=== PATIENT | male | born 1945 | race Caucasian/White ===

== ENCOUNTER 2020-11-05 02:03 | Outpatient (CLI) | payer OTHER, SELFPAY ==
--- NOTE | 2020-11-05 | DI.US_ITS ---
APPROVED REPORT EXAM: Comprehensive 2D, Doppler, and color-flow Echocardiogram Patient Location: Out-Patient Employment Consultant: Joann Orozco RDCS ([facility]) Indications: Systolic heart murmur, Dyspnea on Exertion Other Information Study Quality: Adequate Conclusion Left Ventricle : The left ventricle is normal size. The left ventricular systolic function is normal. The left ventricular ejection fraction is within the normal range. There is normal left ventricular wall thickness. There is normal LV segmental wall motion. The left ventricular diastolic function is normal. LVEF is 60-65%. Right Ventricle : The right ventricle is normal size. The right ventricular systolic function is norm al. The RVSP is 30.1mmHg. Aortic Valve : Aortic valve is calcified. Number of aortic valve leaflets could not be assessed. No a ortic regurgitation is present. Mild aortic stenosis. Peak aortic valve gradient is 29.9mmHg. Highest mean aortic valve gradient is 18.0mmHg. Calculated CHANDRIKA by the continuity equation is 1.24cm2. Mitral Valve : Moderate mitral annular calcification. Mitral valve leaflets are thickened. Trace mitr al regurgitation. No evidence of mitral valve stenosis. Great Vessels : The aortic root is normal in size. The ascending aorta is normal in size. Aortic ar ch is not well visualized. IVC is normal in size and collapses >50% with inspiration. Please see remainder of study for further details. Wall motion Left Ventricle The left ventricle is normal size. The left ventricular systolic function is normal. The left ventric ular ejection fraction is within the normal range. There is normal left ventricular wall thickness. T here is normal LV segmental wall motion. The left ventricular diastolic function is normal. There is no ventricular septal defect visualized. LVEF is 60-65%. Right Ventricle The right ventricle is normal size. The right ventricular systolic function is normal. The RVSP is 30 .1mmHg. Atria The left atrium size is normal. The right atrium size is normal. The interatrial septum is intact wit h no evidence for an atrial septal defect. Aortic Valve Aortic valve is calcified. Number of aortic valve leaflets could not be assessed. Mild aortic stenosi s. Peak aortic valve gradient is 29.9mmHg. Highest mean aortic valve gradient is 18.0mmHg. Calculated CHANDRIKA by the continuity equation is 1.24cm2. No aortic regurgitation is present. Mitral Valve Moderate mitral annular calcification. Mitral valve leaflets are thickened. No evidence of mitral velasquez ve stenosis. Trace mitral regurgitation. Tricuspid Valve The tricuspid valve is normal in structure. There is no tricuspid valve stenosis. Trace tricuspid reg urgitation. Pulmonic Valve Pulmonic valve is grossly normal in structure. There is no pulmonic valvular stenosis. There is no pu lmonic valvular regurgitation. Great Vessels The aortic root is normal in size. The ascending aorta is normal in size. Aortic arch is not well vi sualized. IVC is normal in size and collapses >50% with inspiration. Pericardium There is no pericardial effusion. 2D Dimensions IVSD d PLAX 0.86 cm M: 0.6-1.2 LV Vol A2C d MOD 73.6 mL LVPW d PLAX 0.90 cm M: 0.6 - 1.2 LV Vol A4C d MOD 60.4 mL LVID d PLAX 4.35 cm M: 4.2 - 5.8 LA vol/ BSA A2C s A-L 12.2 mL/m2 LVDs 2.90 cm M: 2.5 - 4.0 LA vol/ BSA A4C s A-L 13.7 mL/m2 Ao Root d 3.15 cm M: 3.1 - 3.7 LA Vol/ BSA Biplane s A-L 13.7 mL/m2 RA Area A4C 13.13 cm2 LA Area A4C s MOD 12.84 cm2 RA Vol/ BSA A4C s A-L 12.9 mL/m2 LA Area A2C s MOD 11.45 cm2 Ao Asc Diam d 3.54 cm M: 2.6 - 3.4 LV EF A4C MOD 65.5 % LV EF Teichholz 61.4 % LV EF A2C MOD 60.6 % LVEF (Diaz's) 61.91 % M: 52 - 72 LV EF Biplane MOD 61.9 % LV Volume 49.79 mL M: 62 - 150 SV 41.40 mL LV Volume Index 24.40 mL/m2 M: 34 - 74 SV Index 20.25 mL/m2 LV Vol Biplane MOD 66.9 mL FS 32.75 % M-Mode TAPSE 2.38 cm (M/F) >1.7 LV Diastology MV E' medial 0.068 (>0.07 m/s) E/A Ratio 0.7 LV E/e MED 15.80 (<14) MV E Vmax 1.08 (0.4-1.3 m/s) MV E' lateral 0.102 (>0.1 m/s) MV A Vmax 1.60 (0.4-1.3 m/s) LV E/e LAT 10.60 (<14) MV E/A Ratio 0.67 MV E/E' medial 15.81 MV E/E' lateral 10.64 Aortic Valve LVOT Area 3.20 cm2 AoV Area Vmax 1.24 cm2 LVOT Vmax 1.06 m/s AoV Area/ BSA (Vmax) 0.61 cm2/m2 LVOT Mean Bob. 0.75 m/s CHANDRIKA Mean Bob. 1.18 cm2 LVOT Peak Grad 4.5 mmHg CHANDRIKA Mean Bob. Index 0.58 cm2/m2 LVOT Mean Grad 2.6 mmHg LVOT VTI 0.212 m LVOT Diam s 2.00 cm AoV Vmax 2.74 m/s Velocity Ratio 0.38 AoV Mean Bob. 2.03 m/s AoV Peak Grad 29.9 mmHg LVOT SV 67.78 mL AoV Mean Grad 18.0 mmHg AoV VTI 0.499 m AoV Area VTI 1.36 cm2 AoV Area/ BSA (VTI) 0.66 cm/m2 Mitral Valve MV DT 220 (160-240 msec) MV PHT 64 msec MV Area PHT 3.45 cm2 MV VTI 0.277 m MV VTI Annulus 0.288 m MV Area VTI 2.55 (4.0-6.0 cm2) Pulmonary Valve PV Vmax 0.99 (0.5-1.5 m/s) RVOT Peak Gr. 2.90 mmHg PV Peak Grad 4.0 mmHg RVOT Mean Gr. 1.45 mmHg PV Mean Grad 2.2 mmHg RVOT VTI 0.135 m PV VTI 0.186 m RVOT Vmax 0.85 m/s Tricuspid Valve TR Peak Grad 27.1 mmHg TR Vmax 2.60 m/s RA Pressure 3.00 mmHg RVSP (TR) 30.1 mmHg
== END 2020-11-05 02:23 ==
PROVIDERS: PCP Family Medicine; Visit Provider Family Medicine
DX: R01.1 Cardiac murmur, unspecified (principal); R06.09 Other forms of dyspnea; I35.0 Nonrheumatic aortic (valve) stenosis
CPT/HCPCS: 93306

== ENCOUNTER 2021-07-11 11:12 | Outpatient (REF) | payer MEDICARE, SELFPAY ==
[2021-07-11 14:37] LABS: Hemoglobin A1C 6.9 % (<5.7)
[2021-07-11 15:09] LABS: ALT 57 U/L (16-63); AST 42 U/L (15-37); Albumin 3.9 g/dL (3.4-5.0); Alkaline Phosphatase 58 U/L (46-116); Anion Gap 9.4 mmol/L (3-11); BUN 14 mg/dL (7-18); Bilirubin, Total 0.6 mg/dL (0.2-1.0); CO2 26.6 mmol/L (21.0-32.0); CREATININE 0.8 mg/dL (0.70-1.30); Calcium 9.8 mg/dL (8.5-10.1); Chloride 100 mmol/L (98-107); Glucose 190 mg/dL (74-106); Potassium 3.7 mmol/L (3.5-5.1); Sodium 136 mmol/L (136-145); Total Protein 7.7 g/dL (6.4-8.2)
== END 2021-07-11 11:13 | disposition home or self-care (01) ==
LOC: NCHCN 11:12
PROVIDERS: PCP Family Medicine; Visit Provider Family Medicine
DX: E11.9 Type 2 diabetes mellitus without complications (principal); I10 Essential (primary) hypertension; E78.5 Hyperlipidemia, unspecified
CPT/HCPCS: 80053; 83036

== ENCOUNTER 2022-08-14 14:35 | Outpatient (REF) | payer MEDICARE, SELFPAY ==
[2022-08-14 19:29] LABS: ALT 46 U/L (16-63); AST 38 U/L (15-37); Albumin 4.2 g/dL (3.4-5.0); Alkaline Phosphatase 64 U/L (46-116); Anion Gap 10.4 mmol/L (3-11); BUN 23 mg/dL (7-18); Bilirubin, Total 0.6 mg/dL (0.2-1.0); CO2 26.6 mmol/L (21.0-32.0); Calcium 9.7 mg/dL (8.5-10.1); Chloride 101 mmol/L (98-107); Estimated GFR 77.52 (mL/min/1.73m2); Glucose 100 mg/dL (74-106); Potassium 3.8 mmol/L (3.5-5.1); Sodium 138 mmol/L (136-145); Total Protein 8.1 g/dL (6.4-8.2)
[2022-08-17 08:14] LABS: PSA, Screening 0.7 ng/mL (<=6.5)
[2022-08-20 08:58] LABS: Hemoglobin A1C 6.1 % (4.0-5.6)
== END 2022-08-14 14:36 | disposition home or self-care (01) ==
LOC: NCHCN 14:35
PROVIDERS: PCP Family Medicine; Visit Provider Family Medicine
DX: E11.9 Type 2 diabetes mellitus without complications (principal); E78.5 Hyperlipidemia, unspecified; I10 Essential (primary) hypertension; F41.8 Other specified anxiety disorders; Z12.5 Encounter for screening for malignant neoplasm of prostate
CPT/HCPCS: 80053; 84153; 83036

== ENCOUNTER 2023-10-08 14:55 | Outpatient (REF) | payer MEDICARE, SELFPAY ==
[2023-10-08 16:39] LABS: HCT 40.3 % (40.0-50.0); HGB 14.4 g/dL (13.5-17.5); MCH 33.6 pg (27.0-33.0); MCHC 35.7 % (32.0-36.0); MCV 94 fL (80-95); MPV 11.3 fL (8.0-11.0); Platelet Count 185 10^3/uL (130-400); RBC 4.28 10^6/uL (4.36-5.78); RDW 12.4 % (11.8-14.1); RDW-SD 42.9 fL; WBC 4.05 10^3/uL (4.4-10.8)
[2023-10-08 16:58] LABS: ALT 47 U/L (16-63); AST 32 U/L (15-37); Alkaline Phosphatase 57 U/L (46-116); Anion Gap 13.1 mmol/L (3-11); BUN 24 mg/dL (7-18); Bilirubin, Total 0.7 mg/dL (0.2-1.0); CO2 24.9 mmol/L (21.0-32.0); Calcium 9.6 mg/dL (8.5-10.1); Chloride 103 mmol/L (98-107); Estimated GFR 76.56 (mL/min/1.73m2); Glucose 76 mg/dL (74-106); Potassium 3.7 mmol/L (3.5-5.1); Sodium 141 mmol/L (136-145); Total Protein 7.9 g/dL (6.4-8.2)
[2023-10-08 17:08] LABS: Hemoglobin A1C 5.9 % (<5.7)
[2023-10-08 22:51] LABS: PSA, Screening 0.6 ng/mL (<=6.5)
== END 2023-10-08 14:56 | disposition home or self-care (01) ==
LOC: NCHCN 14:55
PROVIDERS: PCP Family Medicine; Visit Provider Family Medicine
DX: E11.9 Type 2 diabetes mellitus without complications (principal); I10 Essential (primary) hypertension; Z12.5 Encounter for screening for malignant neoplasm of prostate
CPT/HCPCS: 80053; 84153; 85027; 83036

== ENCOUNTER → 2023-12-06 04:24 | Outpatient (CLI) | payer MEDICARE, SELFPAY ==
--- NOTE | 2023-12-06 13:30 | DI.US_ITS ---
APPROVED REPORT EXAM: Comprehensive 2D, Doppler, and color-flow Echocardiogram Patient Location: Out-Patient Corporate Administrator: Celso Ordoñez RDCS ([facility]) Indications: Nonrheumatic aortic stenosis Other Information Technically limited study due to body habitus. Conclusion Normal left ventricular thickness and chamber size. Ejection fraction is 60 to 65%. Wall motion is normal Normal right ventricular size and function Both atria are normal in size Aortic valve is calcified. Number of aortic valve leaflets cannot be accurately determined. There i s moderate to severe aortic stenosis. Peak gradient is 55, mean 33 mmHg. Calculated aortic valve ar ea 0.8 cm??. There is no aortic regurgitation Mitral annular calcification, mildly thickened mitral leaflets, trace mitral regurgitation Mild tricuspid regurgitation. Estimated right ventricular systolic pressure is 39 mmHg Ascending aorta measures 3.93 cm Wall motion Left Ventricle The left ventricle is normal size. The left ventricular systolic function is normal. The left ventric ular ejection fraction is within the normal range. There is normal left ventricular wall thickness. T here is normal LV segmental wall motion. There is no ventricular septal defect visualized. LVEF is 60 -65%. Right Ventricle The right ventricle is normal size. The right ventricular systolic function is normal. Atria Left atrium is mildly dilated. The right atrium size is normal. The interatrial septum is intact with no evidence for an atrial septal defect. Aortic Valve Aortic valve is calcified. Number of aortic valve leaflets could not be assessed. Moderate to severe aortic stenosis. Peak aortic valve gradient is 55.46 mmHg. Highest mean aortic valve gradient is 32.7 8 mmHg. Calculated CHANDRIKA by the continuity equation is 0.8 cm2. No aortic regurgitation is present. Mitral Valve Moderate mitral annular calcification. Mitral valve leaflets are thickened. No evidence of mitral velasquez ve stenosis. Trace mitral regurgitation. Tricuspid Valve The tricuspid valve is normal in structure. There is no tricuspid valve stenosis. Mild tricuspid regu rgitation. The RVSP is 38.6 mmHg. Pulmonic Valve The pulmonary valve is normal in structure. There is no pulmonic valvular stenosis. There is no pulmo bal valvular regurgitation. Great Vessels The aortic root is normal in size. The ascending aorta is moderately dilated. Aortic arch is not well visualized. IVC is normal in size and collapses >50% with inspiration. Pericardium There is no pericardial effusion. 2D Dimensions IVSD d PLAX 0.70 cm M: 0.6-1.2 Ao Root d 3.17 cm M: 3.1 - 3.7 LVPW d PLAX 0.73 cm M: 0.6 - 1.2 Ao Asc Diam d 3.93 cm M: 2.6 - 3.4 LVID d PLAX 4.60 cm M: 4.2 - 5.8 LVDs 2.98 cm M: 2.5 - 4.0 LV EF Teichholz 64.6 % FS 35.16 % LV EDV (Teich) 97.2 mL LV ESV (Teich) 34.5 mL Stroke Vol Index (Teich) 32.19 M-Mode TAPSE 2.94 cm (M/F) >1.7 Auto EF LV EDV A4C 77.8 mL LV EDV A2C 87.3 mL LV EDV BP 83.7 mL LV ESV A4C 31.0 mL LV ESV A2C 32.7 mL LV ESV BP 32.5 mL LVEF(%) A4C 60.2 % LVEF(%) A2C 62.5 % LVEF(%) BP 61.1 % LV SV A4C 46.8 ml LV SV A2C 54.6 ml LV SV BP 51.1 ml LV CO A4C 4.2 L/min LV CO A2C 4.9 L/min LV CO BP 4.5 L/min HR A4C 89.33 BPM HR A2C 90.00 BPM LV EDV Index (BP) LA Volume LA Length A4C 5.2 cm LA Length A2C 6.0 cm LA Area A4C s 14.40 cm2 LA Area A2C s 17.49 cm2 LA Vol A4C A-L 33.94 mL LA Vol A2C A-L 43.58 mL LA Vol Biplane A-L 41.2 mL LA Vol/BSA A4C A-L LA Vol/BSA A2C A-L LA Vol/BSA BP A-L 21.1 mL/m2 LA Vol A4C MOD 30.9 mL LA Vol A2C MOD 41.6 mL LA Vol BP MOD 38.3 mL RA Volume RA Area A4C 9.2 cm2 RA ESV A4C (A-L) 14.8mL RA Vol/BSA A4C A-L RA Length A4C 4.9 cm RA ESV A4C (MOD) 15.6mL LV Diastology MV E' medial 0.098 (>0.07 m/s) MV E Vmax 1.38 (0.4-1.3 m/s) MV E/E' MED 14.14 (<14) MV A Vmax 1.90 (0.4-1.3 m/s) MV E' lateral 0.098 (>0.1 m/s) E/A Ratio 0.7 MV E/E' LAT 14.14 (<14) MV E' Average 0.098 m/s MV E/E'(average) 14.14 Aortic Valve AoV Vmax 3.72 m/s LVOT Vmax 0.98 m/s AoV Peak Grad 55.5 mmHg LVOT Peak Grad 3.8 mmHg AoV Area (Vmax) 0.66 cm2 LVOT VTI 0.256 m AoV VTI 0.853 m LVOT Mean Grad 3.0 mmHg AoV Mean Bob. 2.72 m/s LVOT SV 64.11 mL AoV Mean Grad 32.8 mmHg LVOT Diam s 1.75 cm AoV Area (VTI) 0.75 cm2 Velocity Ratio 0.26 Mitral Valve MV DT 191 (160-240 msec) Pulmonary Valve PV Vmax 1.00 (0.5-1.5 m/s) RVOT Vmax 0.74 m/s PV Peak Grad 4.0 mmHg RVOT Peak Gr. 2.2 mmHg PV Mean Bob 0.66 m/s RVOT VTI 0.160 m PV Mean Grad 2.1 mmHg RVOT Mean Gr. 1.4 mmHg Tricuspid Valve RA Pressure 3.00 mmHg TR Vmax 2.98 m/s TR Peak Grad 35.5 mmHg RVSP (TR) 38.6 mmHg
== END ==
PROVIDERS: PCP Family Medicine; Visit Provider Family Medicine
DX: I35.0 Nonrheumatic aortic (valve) stenosis (principal); I51.7 Cardiomegaly
CPT/HCPCS: 93306

== ENCOUNTER 2024-04-14 15:27 | Outpatient (REF) | payer MEDICARE, SELFPAY ==
[2024-04-14 19:27] LABS: HCT 28.8 % (40.0-50.0); MCHC 34.7 % (32.0-36.0); MPV 8.9 fL (8.0-11.0); Platelet Count 220 10^3/uL (130-400); RDW 15.5 % (11.8-14.1); RDW-SD 58.4 fL; WBC 2.27 10^3/uL (4.4-10.8)
[2024-04-14 20:05] LABS: ALT 34 U/L (16-63); AST 30 U/L (15-37); Alkaline Phosphatase 96 U/L (46-116); Anion Gap 13.1 mmol/L (3-11); BUN 22 mg/dL (7-18); Bilirubin, Total 0.43 mg/dL (0.2-1.0); CO2 25.9 mmol/L (21.0-32.0); CREATININE 1.1 mg/dL (0.70-1.30); Calcium 9.9 mg/dL (8.5-10.1); Chloride 90 mmol/L (98-107); Estimated GFR 68.29 (mL/min/1.73m2); Glucose 146 mg/dL (74-106); Magnesium 1.7 mg/dL (1.8-2.4); Potassium 3.9 mmol/L (3.5-5.1); Sodium 129 mmol/L (136-145); TSH (W/Ref FT4) 2.75 uIU/mL (0.36-3.74); Total Protein 8.2 g/dL (6.4-8.2); Vitamin B12 121 pg/mL (193-986)
[2024-04-14 20:16] LABS: MCV 107 fL (80-95)
== END 2024-04-14 15:28 | disposition home or self-care (01) ==
LOC: NCHCN 15:27
PROVIDERS: PCP Family Medicine; Visit Provider Family Medicine
DX: H81.8X2 Other disorders of vestibular function, left ear (principal)
CPT/HCPCS: 80053; 85027; 82607; 83735; 84443

== ENCOUNTER 2024-05-11 03:02 | Outpatient (CLI) | payer MEDICARE, SELFPAY ==
[2024-05-11 13:10] LABS: HCT 31.9 % (40.0-50.0); HGB 11.4 g/dL (13.5-17.5); MCH 37.9 pg (27.0-33.0); MCHC 35.7 % (32.0-36.0); MCV 106 fL (80-95); MPV 8.8 fL (8.0-11.0); Platelet Count 161 10^3/uL (130-400); RBC 3.01 10^6/uL (4.36-5.78); RDW 14.3 % (11.8-14.1); RDW-SD 55.8 fL; WBC 2.13 10^3/uL (4.4-10.8)
[2024-05-11 14:28] LABS: Anion Gap 13.2 mmol/L (3-11); BUN 14 mg/dL (7-18); CO2 24.8 mmol/L (21.0-32.0); CREATININE 0.9 mg/dL (0.70-1.30); Calcium 9.9 mg/dL (8.5-10.1); Chloride 98 mmol/L (98-107); Estimated GFR 86.88 (mL/min/1.73m2); Ferritin 864 ng/mL (26-388); Glucose 175 mg/dL (74-106); Potassium 3.8 mmol/L (3.5-5.1); Sodium 136 mmol/L (136-145); Vitamin B12 372 pg/mL (193-986)
[2024-05-11 14:32] LABS: Folate > 20.0 ng/mL (8.6-20.0)
== END 2024-05-11 03:03 | disposition home or self-care (01) ==
LOC: LBO 03:02
PROVIDERS: PCP Family Medicine; Visit Provider Family Medicine
DX: D64.9 Anemia, unspecified (principal); E53.8 Deficiency of other specified B group vitamins; E87.1 Hypo-osmolality and hyponatremia
CPT/HCPCS: 36415; 80048; 85027; 82607; 82728; 82746

== ENCOUNTER 2024-05-22 01:17 | Outpatient (CLI) | payer MEDICARE, SELFPAY ==
[2024-05-22] MEDS: Normal Saline Flush 10 ML SYR IVP (13:13)
[2024-05-22] MEDS: Gadoterate meglumine 20 ML SYRINGE 15 ML IVP (13:14)
--- NOTE | 2024-05-22 14:05 | DI.MRI_ITS ---
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 Both noninfused and contrast i nfused sequences were performed. IAC protocol employed. IV Contrast injected was 15 cc Dotarem. COMPARISON: No exams were available for comparison FINDINGS: CEREBRAL PARENCHYMA: No evidence of intracranial hemorrhage, mass effect nor shift of midline structu re. No extraaxial fluid collections. Ventricles are not enlarged nor shifted. There is no significant focal signal abnormality in the cerebellar hemispheres. There is some mild s ignal abnormality in the left side of the farhad, not associated with hemorrhage nor restricted diffusi on. There is only mild bilateral periventricular signal abnormality consistent with some chronic sma ll vessel disease. Also no restricted diffusion. DWI: No areas of restricted diffusion to suggest acute ischemic event. SWI: No microhemorrhages evident. IAC'S: There are no masses in the cerebellopontine angles. Also no evidence of enhancing intra canal icular acoustic neuroma/schwannoma. There are no ring enhancing lesions in the brain. There is no abnormal meningeal enhancement. PITUITARY GLAND: No mass nor parasellar abnormality. No obvious abnormality in the cavernous sinuses. FLOW VOIDS: The expected flow void are noted. No evidence of obvious aneurysm nor obvious vascular ma lformation. PARANASAL SINUSES: The visualized paranasal sinuses appear unremarkable. There is small amount of flu id in the mastoid air cells bilaterally. ORBITS: No obvious abnormal findings. IMPRESSION: 1. No evidence of acoustic neuroma-schwannoma 2. No abnormal enhancing intracranial findings. There are no ring enhancing lesions in the brain and there is no abnormal meningeal enhancement. 3. Mild T2 bright signal abnormality in left side of the farhad and bilateral periventricular consiste nt with some chronic small vessel disease. There is no evidence of restricted diffusion to suggest r ecent ischemic event and there is no evidence of hemorrhage. DATA REPOSITORY:
== END 2024-05-22 01:37 ==
LOC: DI 01:17
PROVIDERS: PCP Family Medicine; Visit Provider Family Medicine
DX: I67.82 Cerebral ischemia (principal)
CPT/HCPCS: 70553

== ENCOUNTER 2024-06-19 14:02 | Outpatient (CLI) | payer MEDICARE, SELFPAY ==
[2024-06-19 13:52] LABS: HCT 30.1 % (40.0-50.0); HGB 10.6 g/dL (13.5-17.5); MCH 38.3 pg (27.0-33.0); MCHC 35.2 % (32.0-36.0); MCV 109 fL (80-95); MPV 8.4 fL (8.0-11.0); Platelet Count 117 10^3/uL (130-400); RBC 2.77 10^6/uL (4.36-5.78); RDW 13.7 % (11.8-14.1); RDW-SD 54.1 fL
[2024-06-19 14:00] LABS: WBC 1.59 10^3/uL (4.4-10.8)
[2024-06-19 17:08] LABS: Absolute Eosinophil Count 0.03 10^3/uL (0.0-0.7); Absolute Lymphocyte Count 0.89 10^3/uL (1.2-3.4); Absolute Monocyte Count 0.19 10^3/uL (0.1-0.8); Atypical Lymphocytes % 4 %; Bands % 2 %
[2024-06-19 17:10] LABS: Macrocytosis 1+; Polychromasia Present
[2024-06-19 17:35] LABS: Diff Comment Manual Differential
[2024-06-19 18:10] LABS: Absolute Neutrophil Count 0.48 10^3/uL (1.2-6.7)
== END 2024-06-19 14:03 | disposition home or self-care (01) ==
LOC: LBO 14:05
PROVIDERS: PCP Family Medicine; Visit Provider Family Medicine
DX: D64.9 Anemia, unspecified (principal)
CPT/HCPCS: 36415; 85027; 85007

== ENCOUNTER 2024-07-03 00:31 | Emergency (ER) | payer OTHER, SELFPAY ==
[2024-07-03] VITALS (61 sets, daily range): BP systolic 120–173; BP diastolic 43–95; PULSE 85–117; RESP 16–31; TEMP 36.7; O2SAT 96–99
--- NOTE | 2024-07-03 00:15 | RT.EKG_ITS ---
APPROVED REPORT Exam: Resting ECG Reason for Exam: syncope Patient Location: E HR:114 bpm ECG Measurements Heart Rate 114 AXIS MD 186 P 49 QRSd 99 QRS 71 QT 343 T 53 QTc 470 Conclusion Sinus tachycardia...rate> 99 Atrial premature complex...SV complex w/ short R-R interval no ST segment or T wave abnoramlitites to suggest occlusive DE
--- NOTE | 2024-07-03 00:30 | DI.CT_ITS ---
Exam(s) CT HEAD CERVICAL SPINE WO EXAM: CT HEAD CERVICAL SPINE WO CLINICAL HISTORY: syncope and fall. TECHNIQUE: Imaging Protocol: Axial computed tomography images with coronal and sagittal reformatted images were created and reviewed COMPARISON: No exams were available for comparison FINDINGS: Head CT Ventricles and Extra axial spaces: Normal in size and morphology for the patient's age. Small amount of hemorrhage in the right occipital horn. Hemorrhage: Acute right parietal subdural hematoma measuring 5 millimeters in thickness. Adjacent brody barachnoid hemorrhage. Focal intraparenchymal hemorrhage noted on the lateral right occipital lobe . Small amount of subarachnoid hemorrhage is noted at the medial right frontal lobe, adjacent to the falx. Small amount of hemorrhage in the right occipital horn. Small amount subarachnoid hemorrhage in left ambient cistern. Cerebral parenchyma: No evidence of mass or acute infarct. [id number] atrophy. Midline shift: None. Brainstem/Cerebellum: Normal. Calvarium: Normal. Visualized Paranasal sinuses/Mastoids: Small amount of mucus in the left sphenoid sinus. Soft tissues: Unremarkable. Cervical Spine CT BONES: Schmorl's node at superior endplate of C7.. Alignment is normal. There is no evidence of acut e fracture. Degenerative disc changes and facet degenerative changes are seen, greatest at C 3 4. SOFT TISSUES: No paraspinal hematoma. The airway appears intact. No pneumothorax is seen at the lung apices. Heavy calcification noted at the right common carotid bulb and proximal right internal carotid artery . IMPRESSION: Head CT: Acute right subdural hematoma. Three areas of subarachnoid hemorrhage, right parietal, righ t frontal and left ambient cistern. Small focus of parenchymal hemorrhage in the lateral right occip ital lobe. C-spine CT: Degenerative changes, no acute abnormality. RADIATION DOSE DELIVERED: 1,216.13mGy.cm Total DLP DATA REPOSITORY: All CT scans at this facility are submitted to the National Radiology Data Registry (NRDR) Dose Index Registry (DIR) with the [employer] ([employer]). RADIATION OPTIMIZATION: All CT scans at this facility use at least one of these dose optimization te chniques: automated exposure control; mA and/or kV adjustment per patient size (includes targeted exa ms where dose is matched to clinical indication); or iterative reconstruction.
--- NOTE | 2024-07-03 00:45 | NUR.NOTE ---
Patient had artifact with EKG by using the stickers that patient had on him from the ambulance, therefore we changed the stickers and were able to get a better picture. We tried to do the EKG as fast as we could given the artifact that we kept experiencing.
[2024-07-03 01:08] LABS: Abs Immature Grans 0.05 10^3/uL (0.0-0.06); HCT 30.1 % (40.0-50.0); HGB 10.6 g/dL (13.5-17.5); MCH 37.9 pg (27.0-33.0); MCHC 35.2 % (32.0-36.0); MCV 108 fL (80-95); MPV 8.8 fL (8.0-11.0); Platelet Count 247 10^3/uL (130-400); RDW 13.1 % (11.8-14.1); RDW-SD 51.4 fL; WBC 3.31 10^3/uL (4.4-10.8)
[2024-07-03] MEDS: PIPERACILLIN/TAZO 4.5 GM in Normal Saline 100 ML IVPB (01:09)
[2024-07-03 01:10] LABS: Lactate 5.8 mmol/L (0.6-1.4)
--- NOTE | 2024-07-03 01:14 | W.ED.GENAD ---
Discharge Plan Disposition Patient Disposition: Transfer-Acute Inpatient Care Specific Acute Inpt Facility: [facility] Condition: Serious Discharge Details Clinical Impression: SAH (subarachnoid hemorrhage), SDH (subdural hematoma), Intraparenchymal hemorrhage of brain, Seizure, Neutropenia Primary Care Provider: Crista Madera V ED Provider: Ofelia Bustillo Home Meds and New Rx's Prescriptions: No Action Ozempic 0.25 mg or 0.5 mg (2 mg/3 mL) pen injector 0.25 mg subcut QWEEK Rx Instructions: for 4 weeks hydrochlorothiazide 25 mg tablet 25 mg PO DAILY simvastatin 20 mg tablet 20 mg PO DAILY losartan [Cozaar] 100 mg tablet 100 mg PO DAILY duloxetine 30 mg capsule, delayed rel sprinkle 30 mg PO DAILY Bioflex 405-03-09-40 mg tablet 1 tab PO DAILY metformin [Glumetza] 500 mg tablet,ER ilene.retention 24 hr 500 mg PO TID aspirin [Adult Aspirin Regimen] 81 mg tablet,delayed release (DR/EC) 81 mg PO DAILY HPI General Mode of arrival: EMS. Date/Time Provider Initiated Documentation: 07/03/24 00:43. Limitations to Documentation: altered mental status. Information obtained by: patient, EMS and old records reviewed. HPI Narrative: 78yo M presenting via EMS for syncope. Patient unable to provide detailed medical history; per EMS was recently diagnosed with lung cancer. Pt states he has not yet seen oncology or started treatment. Medical history from [facility] shows HTN, HLD, T2DM, aortic stenosis, and pancytopenia with outpatient PCP visit on 06/09 for lightheadedness/vertgio/near syncope. Patient presents today for several episodes of syncope. He does not think he fell or hit his head. Feels mildly short of breath since this afternoon, otherwise denies any symptoms currently. No fevers, chills, rash, nausea, vomiting, headache, numbness, tingling, weakness, abdominal pain, dysuria, hematuria, LE edema, chest pain, or other concerns. Attempted to contact pt's for collateral informaiton, unable to reach. Indy subsequently presented to bedside; states patient has not been diagnosed with lung cancer, rather that his PCP was concerned about low WBC/Hg/platelets and scheduled a bone marrow biopsy to evaluate for hematologic malignancy. She reports that patient had two episodes of loss of consciousness today while in his chair (maybe trying to get up?). During the first one she observed about two minutes of whole body convulsions after which he seemed confused for 10-15 minutes. The second episode was similar but he did not have convulsions at that time, was belly breathing and not responsive for about two minutes and then confused afterwards. She called EMS after the second episode. States that he is back to baseline now and acting like his usual self. Related Data Home Medications ?Medication ?Instructions ?Recorded ?Confirmed aspirin 81 mg tablet,delayed 81 mg PO DAILY 07/03/24 07/03/24 release (Adult Aspirin Regimen) duloxetine 30 mg capsule,delayed 30 mg PO DAILY 07/03/24 07/03/24 release sprinkle hydrochlorothiazide 25 mg tablet 25 mg PO DAILY 07/03/24 07/03/24 losartan 100 mg tablet (Cozaar) 100 mg PO DAILY 07/03/24 07/03/24 metformin 500 mg 24 hr 500 mg PO TID 07/03/24 07/03/24 tablet,extended release (gastric retention) (Glumetza) semaglutide 0.25 mg or 0.5 mg (2 0.25 mg subcut QWEEK 07/03/24 07/03/24 mg/3 mL) subcutaneous pen injector (Ozempic) simvastatin 20 mg tablet 20 mg PO DAILY 07/03/24 07/03/24 vit 1 tab PO DAILY 07/03/24 07/03/24 [id number]-[id number] 500 mg-50 mg-25 mg-40 mg tablet (Bioflex) Allergies Allergy/AdvReac Type Severity Reaction Status Date / Time No Known Allergies Allergy Unverified 07/03/24 00:45 General Stated Complaint: [id number] DINAH: 3 Review of Systems Narrative: see HPI Exam Narrative Exam Narrative: GENERAL: Alert, no acute distress. SKIN: Warm and well perfused. HEAD: Atraumatic, normocephalic without edema, discoloration or evidence of trauma. Facial bones without deformities or tenderness. EYES: PERRL. No scleral icterus or conjunctival injection. Extraocular muscles intact without nystagmus or diplopia. No proptosis or enophthalmos. EARS: Normal appearing pinnae. No hemotympanum. NOSE: No discharge, tenderness, laxity. No nasal septal hematoma. MOUTH: No malocclusion or trismus. Moist mucus membranes without blood. Posterior pharynx without erythema or exudate. NECK: Trachea midline. No discolorations or edema. CV: Tachycardiac, regular. Normal s1 and s2. PV: Radial pulses 2+ bilaterally and symmetric. Dorsalis pedis pulses 1+ bilaterally and symmetric. 2+ capillary refill. No extremity edema. CHEST: No abrasions or ecchymosis. Chest symmetric with respirations. Right lateral/posterior chest wall TTP. No crepitus. No step offs. Lungs are clear to auscultation bilaterally. ABDOMEN: No ecchymosis or abrasions. Soft, nondistended, nontender. BACK: No abrasions, skin openings, or ecchymosis. Spine without bony tenderness, no step offs. PELVIC: Pelvis stable, nontender to lateral compression and palpation of symphysis pubis. : Normal external genitalia without blood at meatus. No ecchymosis or edema. MSK: No gross deformities or discolorations or lesions. Tolerates full range of motion of extremities without tenderness. Neuro: ? Alert, oriented to person & place only. GCS 14 (E4 V4 M6).? PERRL.? EOMI.? Fluent speech, no dysarthria. Motor- 4/5 strength RUE with elbow flexion and extension, otherwise 5/5 strength symmetric bilateral upper and lower extremities including shoulder abductors/adductors, elbow flexors/extensors, wrist flexors/extensors, finger abductors/adductors, hipflexors/extensors, knee flexors/extensors, ankle dorsiflexors and planter flexors. Sensation- ?Intact to light touch and symmetric multiple dermatomes including upper and lower extremities Coordination- RUE with mild dysmetria on finger to nose. LUE no dysmetria. Reflexes- 1/4 achilles & patellar, no clonus Gait: Not tested. CRANIAL NERVES: II: Pupils equal and reactive, III, IV, : EOM intact, no gaze preference or deviation, no nystagmus. V: normal sensation in V1, V2, and V3 segments bilaterally VII: no asymmetry, no nasolabial fold flattening VIII: normal hearing to speech IX, X: normal palatal elevation, no uvular deviation XI: 5/5 head turn and 5/5 shoulder shrug bilaterally XII: midline tongue protrusion Course Vital Signs Vital signs: Vital Signs Temperature 36.7 C 07/03/24 00:30 Pulse 117 H 07/03/24 00:30 Respiratory Rate 16 07/03/24 00:30 Blood Pressure 151/43 H 07/03/24 00:30 Pulse Oximetry 96 07/03/24 00:30 Temperature 36.7 C 07/03/24 00:30 Temperature Source Temporal Artery Scan 07/03/24 00:30 Pulse 117 H 07/03/24 00:30 Respiratory Rate 16 07/03/24 00:54 Respiratory Effort Normal, Non-Labored 07/03/24 00:54 Respiratory Depth Normal 07/03/24 00:54 Respiratory Pattern Normal 07/03/24 00:54 Blood Pressure 151/43 H 07/03/24 00:30 Blood Pressure Position Supine 07/03/24 00:30 Pulse Oximetry 96 07/03/24 00:30 Oxygen Delivery Method Room Air 07/03/24 00:30 Oxygen Flow Rate 0 07/03/24 00:30 Lab/Test Results Lab/Test Results: 07/03/24 01:00 Blood Blood Culture - Pending 07/03/24 00:45 Blood Blood Culture - Pending Laboratory Tests Range/Units 07/03/24 00:39 VBG Lactate (0.6-1.4) mmol/L 5.8 H* Medical Decision Making 78yo M presenting via EMS for syncope. Patient unable to provide detailed medical history; per EMS was recently diagnosed with lung cancer. Medical history from [facility] shows HTN, HLD, T2DM, aortic stenosis, and pancytopenia with outpatient PCP visit on 06/09 for lightheadedness/vertgio/near syncope. [facility] record review shows WBC of 1.6 with neutropenia on 06/19/24. He reports mild shortness of breath, otherwise denies symptoms. Tachycardiac on arrival to 110's-120's, vital signs otherwise reassuring. EKG sinus tachycardia, appropriate intervals, no ST segment or T wave abnormalities to suggest occlusive MO. Given recent neutropenia and tachycardiac here, will treat for possible sepsis with broad spectrum abx zosyn/zyvox and send blood cultures while awaiting further workup. Will start with 1L IVFB, must consider heart failure as a possibility given age, minimal history from patient, and shortness of breath. Indy subsequently presented to bedside; states patient has not been diagnosed with lung cancer, rather that his PCP was concerned about low WBC/Hg/platelets and scheduled a bone marrow biopsy to evaluate for hematologic malignancy. Describes two episodes of LOC today concerning for syncope vs seizure, one episode with generalized convulsions and both followed by a period of increased confusion. She states that he is back to baseline now. He does have mild RUE weakness and dysmetria; states the weakness is not new and has been present for several months. -Labs reviewed as below, CBC with neutropenia albeit somewhat improved (WBC 3.3, ANC 0.99) with mild anemia and no thrombocytopenia, CMP with mild hyponatremia at 134 and hypokalemia at 3.1 (oral replacement ordered), Mg low at 1.5 (oral replacement ordered), initial troponin normal, BNP not consistent with CHF, procal reassuring, lactate significantly elevated at 5.8 (?sepsis vs seizure). -CT head/cspine independently reviewed; agree with radiology reads below with SAH, subdural hematoma, intraparenchymal hemmoraghe. -CT chest independently reviewed; no large saddle pulmonary embolus on my view, agree with radiology read below with right 4th-8th rib fractures. -CT abd/pelvis independently reviewed; no free fluid or obstruction on my view, agree with radiology read below. With SAH/SDH/IPH on CT head, will give 2g IV Keppra for seizures/seizure ppx. SBP ranging 140's-150's; goal <160 so will not treat at this time. Discussed with [facility] trauma Dr. Nash; accepted as trauma alert. Awaiting transport. Medical Records Medical records reviewed: Yes I reviewed the patient's medical records. Imaging Data Radiologic Study: Imaging: CT Scan Radiologist's impression: Head: IMPRESSION: 1. Traumatic brain injury. 2. Right parietal subdural hematoma, 5 mm thickness. 3. At least three separate sites of subarachnoid hemorrhage. 4. Right occipital intraparenchymal hemorrhage. C-spine: IMPRESSION: No acute cervical spine fracture Chest: IMPRESSION: 1. Acute fractures through the anterolateral aspect of the right 4th-8th ribs. Subtle acute fractures through the anterolateral aspect of the left 5th-7th ribs. Subacute fractures through the posterior aspect of the left 7th-9th ribs with bony callus formation but incomplete bony union. 2. No pulmonary consolidation, pleural effusion, or pneumothorax. Abd/pelvis: IMPRESSION: 1. No acute visceral or bony injury seen in the abdomen or pelvis. 2. Fluid throughout the colon, nonspecific but commonly seen in the setting of diarrhea from any cause. 3. Gallstones. Lab Data Lab results reviewed: Yes I reviewed the patient's lab results. Labs: 07/03/24 01:15 Blood Blood Culture - Pending 07/03/24 01:00 Blood Blood Culture - Pending Laboratory Tests Range/Units 07/03/24 00:39 WBC (4.4-10.8) 10^3/uL 3.31 L RBC (4.36-5.78) 10^6/uL 2.80 L Hgb (13.5-17.5) g/dL 10.6 L Hct (40.0-50.0) % 30.1 L MCV (80-95) fL 108 H MCH (27.0-33.0) pg 37.9 H MCHC (32.0-36.0) % 35.2 RDW (11.8-14.1) % 13.1 Plt Count (130-400) 10^3/uL 247 MPV (8.0-11.0) fL 8.8 Immature Gran % % 0.0 Neutrophils % % 28.0 Band Neutrophils % % 2 Lymphocytes % % 59.0 Atypical Lymphs % % 1 Monocytes % % 10.0 Eosinophils % % 0.0 Basophils % % 0.0 Nucleated RBC % (0.0-0.3) % 0.0 Absolute Neutrophils (1.2-6.7) 10^3/uL 0.99 L Absolute Lymphocytes (1.2-3.4) 10^3/uL 1.99 Absolute Monocytes (0.1-0.8) 10^3/uL 0.33 Absolute Eosinophils (0.0-0.7) 10^3/uL 0.00 Absolute Basophils (0.0-0.2) 10^3/uL 0.00 RBC Morphology See Below Macrocytosis 1+ PT (9.1-11.1) sec 12.0 H INR (0.9-1.1) 1.2 H APTT (23.6-32.8) sec 28.7 VBG Lactate (0.6-1.4) mmol/L 5.8 H* Sodium (136-145) mmol/L 134 L Potassium (3.5-5.1) mmol/L 3.1 L Chloride (98-107) mmol/L 92 L Carbon Dioxide (21.0-32.0) mmol/L 26.1 Anion Gap (3-11) mmol/L 15.9 H BUN (7-18) mg/dL 23 H Creatinine (0.70-1.30) mg/dL 1.2 Est GFR (CKD-EPI 2020) (mL/min/1.73m2) 61.52 Glucose (74-106) mg/dL 216 H Calcium (8.5-10.1) mg/dL 9.7 Magnesium (1.8-2.4) mg/dL 1.5 L Total Bilirubin (0.2-1.0) mg/dL 0.46 AST (15-37) U/L 38 H ALT (16-63) U/L 40 Alkaline Phosphatase (46-116) U/L 116 Troponin I (<or=76) ng/L 10 NT-Pro-B Natriuret Pep (<300) pg/mL 356 H Total Protein (6.4-8.2) g/dL 8.5 H Albumin (3.4-5.0) g/dL 2.8 L Lipase (<78) U/L 38 Procalcitonin ng/mL < 0.10 Quality:SDOH Health Related Social Needs: No Data to Display PFSH All Active Problems (Updated 07/03/24 @ 03:54 by Ofelia Bustillo MD) Neutropenia (Acute) Seizure (Acute) Intraparenchymal hemorrhage of brain (Acute) SDH (subdural hematoma) (Acute) SAH (subarachnoid hemorrhage) (Acute) Social History Smoking risk assessment performed?: No
[2024-07-03 01:19] LABS: Magnesium 1.5 mg/dL (1.8-2.4)
[2024-07-03] MEDS: Normal Saline 1,000 ML 1000 ML IV (01:20)
[2024-07-03] MEDS: LINEZOLID 600 MG/300 ML BAG 300 MG IVPB (01:20)
[2024-07-03 01:21] LABS: INR 1.2 (0.9-1.1); PTT Activated 28.7 sec (23.6-32.8)
[2024-07-03 01:31] LABS: Absolute Lymphocyte Count 1.99 10^3/uL (1.2-3.4); Absolute Monocyte Count 0.33 10^3/uL (0.1-0.8); Absolute Neutrophil Count 0.99 10^3/uL (1.2-6.7); Atypical Lymphocytes % 1 %; Bands % 2 %; Diff Comment Manual Differential
[2024-07-03 01:32] LABS: ALT 40 U/L (16-63); AST 38 U/L (15-37); Albumin 2.8 g/dL (3.4-5.0); Alkaline Phosphatase 116 U/L (46-116); Anion Gap 15.9 mmol/L (3-11); BUN 23 mg/dL (7-18); Bilirubin, Total 0.46 mg/dL (0.2-1.0); CO2 26.1 mmol/L (21.0-32.0); CREATININE 1.2 mg/dL (0.70-1.30); Chloride 92 mmol/L (98-107); Estimated GFR 61.52 (mL/min/1.73m2); Glucose 216 mg/dL (74-106); Lipase 38 U/L (<78); Macrocytosis 1+; NT-proBNP 356 pg/mL (<300); Potassium 3.1 mmol/L (3.5-5.1); Sodium 134 mmol/L (136-145); Total Protein 8.5 g/dL (6.4-8.2); Troponin I 10 ng/L (<or=76)
[2024-07-03 01:37] LABS: Calcium 9.7 mg/dL (8.5-10.1)
[2024-07-03 01:43] LABS: Procalcitonin < 0.10 ng/mL
--- NOTE | 2024-07-03 01:45 | DI.CT_ITS ---
Exam(s) CT HEAD W EXAM: CT HEAD W CLINICAL HISTORY: syncope. TECHNIQUE: Imaging Protocol: Axial computed tomography images of the head with coronal and sagittal reformatted images were created and reviewed. Exam performed 7 minutes following chest abdomen pelvi c CT. CONTRAST MATERIAL: Intravenous: Omnipaque 350 Contrast volume:75 mL administered for the chest abdom en pelvic CT. No additional contrast administered for the head CT. Contrast route:IV - COMPARISON: CT CT HEAD CERVICAL SPINE WO from 07/03/[address] CHEST PE ABD PELVIS W from 07/03/2024 FINDINGS: Ventricles and Extra axial spaces: Normal in size and morphology for the patient's age. Small amount of hemorrhage again noted in the right occipital horn. Hemorrhage: Stable appearance of right subdural hematoma and areas of subarachnoid hemorrhage. No ac tive contrast extravasation. Cerebral parenchyma: Normal. Enhancement: No suspicious enhancement. No evidence of aneurysm or significant vascular stenosis. Midline shift: None. Brainstem/Cerebellum: Normal. Calvarium: Normal. Visualized Paranasal sinuses/Mastoids: Mucous retention in the left sphenoid sinus. Soft tissues: Unremarkable. IMPRESSION: Stable right parietal subdural hemorrhage. Stable areas subarachnoid hemorrhage. Stable focus of pa renchymal hemorrhage in the right occipital lobe. No evidence of enhancing masses. RADIATION DOSE DELIVERED: 910.3mGy.cm Total DLP DATA REPOSITORY: All CT scans at this facility are submitted to the National Radiology Data Registry (NRDR) Dose Index Registry (DIR) with the [employer] (ACR). RADIATION OPTIMIZATION: All CT scans at this facility use at least one of these dose optimization te chniques: automated exposure control; mA and/or kV adjustment per patient size (includes targeted exa ms where dose is matched to clinical indication); or iterative reconstruction.
[2024-07-03] MEDS: Potassium Chloride Liquid 20 MEQ PKT 40 MEQ PO (02:08)
[2024-07-03] MEDS: Magnesium Gluconate 500 MG TAB 1000 MG PO (02:08)
--- NOTE | 2024-07-03 02:28 | DI.VRAD_ITS ---
Addendum created by Lloyd Gunderson MD on 07/03/2024 2:33:30 AM EST: THIS REPORT CONTAINS FINDINGS THAT MAY BE CRITICAL TO PATIENT CARE. The findings were verbally communicated via telephone conference with RENE CEJA at 2:28 AM EST on 07/03/2024. The findings were acknowledged and understood. Initial report created on 07/03/2024 2:27:29 AM EST: PROCEDURE INFORMATION: Exam: CT Head Without Contrast Exam date and time: 07/03/2024 1:43 AM Age: 78 years old Clinical indication: Injury or trauma; Blunt trauma (contusions or hematomas); With loss of consciousness; Not specified; Injury date: 07/02/24; Injury details: Syncope, fall; Patient HX: Newly diagnosed with lung CA TECHNIQUE: Imaging protocol: Computed tomography of the head without contrast. Radiation optimization: All CT scans at this facility use at least one of these dose optimization techniques: automated exposure control; mA and/or kV adjustment per patient size (includes targeted exams where dose is matched to clinical indication); or iterative reconstruction. COMPARISON: MR BRAIN WO/W 05/22/2024 1:11 PM FINDINGS: Brain: A right parietal hyperdense subdural hematoma is new from previous study, 0.5 cm diameter and 7.3 x 5.1 cm wide. There is mild associated subarachnoid hemorrhage. A focus of intraparenchymal hemorrhage is noted in the lateral right occipital lobe, 0.6 x 0.8 x 1.2 cm, less than 1 mL. Mild subarachnoid hemorrhage is also noted adjacent to the right frontal lobe at midline, and subarachnoid hemorrhage is also observed in the left ambient cistern adjacent to the tectal plate. Moderate cerebral atrophy is noted overall. There is no midline shift. Cerebral ventricles: No ventriculomegaly. Mild intraventricular hemorrhage, right occipital horn. Paranasal sinuses: Moderate mucous noted in the sphenoid sinus. No layering fluid in paranasal sinuses. Mastoid air cells: Visualized mastoid air cells are well aerated. Orbital cavities: No retrobulbar hemorrhage. Unremarkable orbits. Bones: No acute skull fracture. Soft tissues: Unremarkable. IMPRESSION: 1. Traumatic brain injury. 2. Right parietal subdural hematoma, 5 mm thickness. 3. At least three separate sites of subarachnoid hemorrhage. 4. Right occipital intraparenchymal hemorrhage. PROCEDURE INFORMATION: Exam: CT Cervical Spine Without Contrast Exam date and time: 07/03/2024 1:43 AM Age: 78 years old Clinical indication: Injury or trauma; Blunt trauma (contusions or hematomas); With loss of consciousness; Not specified; Injury date: 07/02/24; Injury details: Syncope, fall; Patient HX: Newly diagnosed with lung CA TECHNIQUE: Imaging protocol: Computed tomography of the cervical spine without contrast. Radiation optimization: All CT scans at this facility use at least one of these dose optimization techniques: automated exposure control; mA and/or kV adjustment per patient size (includes targeted exams where dose is matched to clinical indication); or iterative reconstruction. COMPARISON: MR BRAIN WO/W 05/22/2024 1:11 PM FINDINGS: Bones: A mild depression at the C7 superior endplate is noted and appears chronic. No acute fractures are observed. Negative for anterior or posterior translation of vertebral bodies. Multilevel degenerative disc disease and facet arthropathy noted. No significant spinal canal stenosis. The bulky osteophyte complex at C3-C4 on the right . Severe neural foraminal narrowing. Lungs: Lung apices are normal. Soft tissues: Unremarkable. IMPRESSION: No acute cervical spine fracture. Dictated and Authenticated by: Lloyd Gunderson MD. Ordering:GIBSON Gilbert MD
--- NOTE | 2024-07-03 02:32 | DI.VRAD_ITS ---
PROCEDURE INFORMATION: Exam: CT Head With Contrast Exam date and time: 07/03/2024 2:01 AM Age: 78 years old Clinical indication: Syncope and collapse; Patient HX: Syncope, new diagnosis of lung CA TECHNIQUE: Imaging protocol: Computed tomography of the head with intravenous contrast. Radiation optimization: All CT scans at this facility use at least one of these dose optimization techniques: automated exposure control; mA and/or kV adjustment per patient size (includes targeted exams where dose is matched to clinical indication); or iterative reconstruction. Contrast material: OMNIPAQUE 350; Contrast volume: 75 ml; Contrast route: INTRAVENOUS (IV); COMPARISON: CT HEAD CERVICAL SPINE WO 07/03/2024 1:43 AM FINDINGS: Brain: Sites of subdural, subarachnoid, and intraparenchymal hemorrhage are again noted. Moderate cerebral atrophy is noted. There are no enhancing masses observed within the brain or meninges. Cerebral ventricles: Mild right occipital horn hemorrhage. No ventriculomegaly. Bones/joints: No acute skull fracture. No erosive or destructive bony lesion. Paranasal sinuses: Mucous is noted in the sphenoid sinus. No layering fluid in the paranasal sinuses. Mastoid air cells: The mastoid air cells are clear. No evidence of skull base mass. Soft tissues: Unremarkable. IMPRESSION: 1. Traumatic hemorrhage again noted. 2. No evidence of metastatic neoplasm. Dictated and Authenticated by: Lloyd Gunderson MD. Ordering:GIBSON Gilbert MD
--- NOTE | 2024-07-03 02:37 | DI.VRAD_ITS ---
PROCEDURE INFORMATION: Exam: CTA Chest With Contrast Exam date and time: 07/03/2024 1:47 AM Age: 78 years old Clinical indication: Patient HX: Syncope, tachycardia, lung CA, neutropenic TECHNIQUE: Imaging protocol: Computed tomographic angiography of the chest with contrast. Exam focused on the arteries. 3D rendering (Not supervised by radiologist): MIP and/or 3D reconstructed images were created by the technologist. Radiation optimization: All CT scans at this facility use at least one of these dose optimization techniques: automated exposure control; mA and/or kV adjustment per patient size (includes targeted exams where dose is matched to clinical indication); or iterative reconstruction. Contrast material: OMNIPAQUE 350; Contrast volume: 75 ml; Contrast route: INTRAVENOUS (IV); COMPARISON: CT HEAD CERVICAL SPINE WO 07/03/2024 1:43 AM FINDINGS: Pulmonary arteries: No pulmonary embolism identified. Aorta: No thoracic aortic aneurysm or dissection. Thyroid: Thyroid gland partially excluded from view but grossly unremarkable through its visualized portion. Lungs: No pulmonary laceration or consolidation. Pleural spaces: No pleural effusion or pneumothorax. Heart: Normal-sized heart. Aortic valve calcification. Calcification along the mitral valve annulus. Extensive coronary artery calcification. Small pericardial effusion. Lymph nodes: No pathologically enlarged mediastinal or hilar lymph nodes. Diaphragm: Prominent elevation of the right hemidiaphragm. Bones/joints: Acute fractures through the anterolateral aspect of the right 4th-8th ribs. Subtle acute fractures through the anterolateral aspect of the left 5th-7th ribs. Subacute fractures through the posterior aspect of the left 7th-9th ribs with bony callus formation but incomplete bony union. Spinal degenerative change with anterior osteophytes at multiple levels. Soft tissues: No gross soft tissue mass or fluid collection seen in the chest wall. IMPRESSION: 1. Acute fractures through the anterolateral aspect of the right 4th-8th ribs. Subtle acute fractures through the anterolateral aspect of the left 5th-7th ribs. Subacute fractures through the posterior aspect of the left 7th-9th ribs with bony callus formation but incomplete bony union. 2. No pulmonary consolidation, pleural effusion, or pneumothorax. PROCEDURE INFORMATION: Exam: CT Abdomen And Pelvis With Contrast Exam date and time: 07/03/2024 1:47 AM Age: 78 years old Clinical indication: Patient HX: Syncope, tachycardia, lung CA, neutropenic TECHNIQUE: Imaging protocol: Computed tomography of the abdomen and pelvis with contrast. Radiation optimization: All CT scans at this facility use at least one of these dose optimization techniques: automated exposure control; mA and/or kV adjustment per patient size (includes targeted exams where dose is matched to clinical indication); or iterative reconstruction. Contrast material: OMNIPAQUE 350; Contrast volume: 75 ml; Contrast route: INTRAVENOUS (IV); COMPARISON: No relevant prior studies available. FINDINGS: Liver: Normal appearing liver. Gallbladder and biliary ducts: Peripherally calcified polygonal gallstones. Gallbladder partially distended. No biliary dilatation. Pancreas: Normal appearing pancreas. Spleen: Normal appearing spleen. Adrenal glands: Normal appearing adrenal glands. Kidneys and ureters: Normal appearing kidneys. No hydronephrosis. No obstructing ureteral stones. Stomach and bowel: Stomach moderately distended with fluid and ingested material. No small bowel dilatation to suggest obstruction. Colon well evacuated of formed fecal material. Fluid throughout much of the colon suspicious for diarrhea or impending diarrhea. No evidence of diverticulitis or colitis. Appendix: Normal appendix. Intraperitoneal space: No gross ascites or free air. Vasculature: Normal caliber abdominal aorta. Extensive atherosclerotic calcification affecting primarily the medium-sized and small arteries of the pelvis Lymph nodes: No pathologically enlarged mesenteric, retroperitoneal, or pelvic sidewall lymph nodes. No pathologically enlarged mesenteric, retroperitoneal, or pelvic sidewall lymph nodes. Urinary bladder: Normal-appearing urinary bladder, moderately distended. Calcified bladder stones versus excreted contrast material. Reproductive: Normal-appearing prostate gland and seminal vesicles. Bones/joints: No acute fracture seen among the bones of the abdomen or pelvis. Spinal degenerative change with discogenic degeneration and facet arthrosis at multiple levels. 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 At least partial fusion across the sacroiliac joints. Prominent degenerative change at the pubic symphysis. Soft tissues: Small fat containing ventral hernia at the umbilicus. IMPRESSION: 1. No acute visceral or bony injury seen in the abdomen or pelvis. 2. Fluid throughout the colon, nonspecific but commonly seen in the setting of diarrhea from any cause. 3. Gallstones. Dictated and Authenticated by: Brandon Bailey MD. Ordering:GIBSON Gilbert MD
[2024-07-03] MEDS: levETIRAcetam 2,000 MG in Normal Saline 100 ML 400 MG IVPB (02:41)
[2024-07-03 03:02] LABS: COVID-19 PCR Negative (Negative); Influenza A PCR Negative (Negative); Influenza B PCR Negative (Negative); RSV PCR Negative (Negative)
[2024-07-03 03:03] LABS: Source Nasopharynx
--- NOTE | 2024-07-03 03:04 | NUR.NOTE ---
Nursing Note: Pt states he had to urinate, the pts stated she thought he may have had a bm, pt able to follow directions, states he uses a walker at home. the pt was able to sit up with x2 assist and to stand with assistance and the walker, the pt then stated he did not need to urinate. pt cleaned and new brief applied. Pt aware of rib fx
[2024-07-03] MEDS: Omnipaque 350 MG/ML 100 ML BTL IJ (03:05)
[2024-07-03] MEDS: Normal Saline - Diluent 50 ML VIAL IJ (03:06)
[2024-07-03 03:32] LABS: Lactate 3.9 mmol/L (0.6-1.4)
--- NOTE | 2024-07-03 03:35 | DI.CT_ITS ---
Exam(s) CT THORACIC LUMBAR SPINE WO CT CHEST PE ABD PELVIS W EXAM: CT CHEST PE ABD PELVIS W CLINICAL HISTORY: syncope, tachycardia, lung ca, neutropenic. TECHNIQUE: Imaging Protocol: Axial CT angiography was performed with multi-slice acquisition and mu lti-planar and/or 3D reconstructions. Computer aided detection (CAD) was utilized. CONTRAST MATERIAL: Intravenous: Omnipaque 350 Contrast volume:100 ml COMPARISON: CT CT THORACIC LUMBAR SPINE WO from 07/03/2024 FINDINGS: CHEST: Pulmonary Arteries: No evidence of filling defects to suggest pulmonary emboli. Tracheobronchial tree: No bronchiectasis or mucus plugging. Mediastinum and Blessing: No dominant adenopathy or fluid collection. Pulmonary parenchyma: No consolidation or dominant measurable mass. Pleura: No effusion. No pneumothorax. Heart: The heart is notdilated. Aortic valve calcification mitral valve annular calcification. Ifrah re coronary artery calcifications are seen. Aorta: Thoracic aorta non-dilated. Bones: Fractures of the right 4th through 8th ribs anterolaterally. Fractures of the left anterolate ral 5th through 7th ribs. Subacute fractures of the left 7th and 9th ribs. No spinal fractures. De generative changes. Small. Tubes, Catheters, and Lines: None. Soft tissues: Elevation of the right diaphragm. ABDOMEN and PELVIS: Liver: Normal size. Normal density. No suspicious measurable mass. Portal, Superior Mesenteric, and Splenic Veins: Unremarkable. Gallbladder and Biliary Tract: Calcified gallstones. No gallbladder wall thickening. No biliary dil atation. Pancreas: Normal density, no abnormal calcifications or inflammatory process. Spleen: Normal. Adrenals: No masses seen. Kidneys: Normal size, contour and axis. No radiodense stones. No obstructive uropathy. No masses seen . Vasculature: Abdominal aorta non-dilated. Atherosclerotic changes. Bowel: No obstruction or bowel wall thickening. Appendix is unremarkable. Peritoneal Cavity: No ascites, collection or mesenteric inflammatory response. Lymph Nodes: Within normal limits. Soft Tissues: Small fat containing umbilical hernia. Bladder: Distended. No gross wall thickening. Calcifications at posterior bladder could be within wall or lumen. Reproductive Organs: Unremarkable as visualized. Bones: Old bilateral L5 spondylo lysis with mild spondylolisthesis L5-S1. Severe degenerative disc c hanges at this level. Partial fusion of the SI joints. Enthesophytes at ischial tuberosities and il iac wings as well as pubic symphysis. IMPRESSION: 1. No evidence of pulmonary embolism. The aorta is intact. Bilateral rib fractures. No evidence of pneumothorax. 2. No acute abdominal or pelvic process. No evidence of acute spine or pelvic fractures. RADIATION DOSE DELIVERED: 480mGy.cm Total DLP DATA REPOSITORY: All CT scans at this facility are submitted to the National Radiology Data Registry (NRDR) Dose Index Registry (DIR) with the [employer] (ACR). RADIATION OPTIMIZATION: All CT scans at this facility use at least one of these dose optimization te chniques: automated exposure control; mA and/or kV adjustment per patient size (includes targeted exa ms where dose is matched to clinical indication); or iterative reconstruction.
[2024-07-03 03:50] LABS: Troponin I 15 ng/L (<or=76)
[2024-07-03 04:04] LABS: Bilirubin Negative (Negative); Blood Trace-intact (Negative); Clarity Clear (Clear); Glucose Negative (Negative); Ketones 15 mg/dL (Negative); Leukocyte Esterase Negative (Negative); Nitrite Negative (Negative); Urobilinogen 0.2 mg/dL (Up to 0.2); pH 5.5 (5-8)
[2024-07-03 04:19] LABS: Bacteria Rare HPF (Negative); C & S Indicated? No; Casts Negative LPF (Negative); Crystals Negative HPF (Negative); Epithelial Cells Negative HPF (Negative); Mucus Negative (Negative); RBC Negative HPF (0-2); WBC Negative HPF (0-5)
--- NOTE | 2024-07-03 07:38 | DI.VRAD_ITS ---
PROCEDURE INFORMATION: Exam: CT Thoracic Spine Without Contrast Exam date and time: 07/03/2024 1:47 AM Age: 78 years old Clinical indication: Injury or trauma; Blunt trauma (contusions or hematomas); Injury date: 07/02/24; Injury details: Fall, syncope; Patient HX: [facility] per [facility] [place] TECHNIQUE: Imaging protocol: Computed tomography of the thoracic spine without contrast. Radiation optimization: All CT scans at this facility use at least one of these dose optimization techniques: automated exposure control; mA and/or kV adjustment per patient size (includes targeted exams where dose is matched to clinical indication); or iterative reconstruction. COMPARISON: CT CHEST PE ABD PELVIS W 07/03/2024 1:47 AM FINDINGS: Bones/joints: The thoracic spine maintains a normal kyphotic curvature. No spondylolisthesis. The vertebral bodies maintain normal height. No fracture. Multilevel loss of intervertebral disc height with endplate degenerative changes. Soft tissues: The paravertebral soft tissues are unremarkable. IMPRESSION: No acute fracture or traumatic malalignment in the thoracic spine. PROCEDURE INFORMATION: Exam: CT Lumbar Spine Without Contrast Exam date and time: 07/03/2024 1:47 AM Age: 78 years old Clinical indication: Injury or trauma; Blunt trauma (contusions or hematomas); Injury date: 07/02/24; Injury details: Fall, syncope; Patient HX: [facility]cons per [facility] [place] TECHNIQUE: Imaging protocol: Computed tomography of the lumbar spine without contrast. Radiation optimization: All CT scans at this facility use at least one of these dose optimization techniques: automated exposure control; mA and/or kV adjustment per patient size (includes targeted exams where dose is matched to clinical indication); or iterative reconstruction. COMPARISON: CT CHEST PE ABD PELVIS W 07/03/2024 1:47 AM FINDINGS: Bones/joints: The lumbar spine maintains a normal lordotic curvature. Bilateral pars defects at L5. Grade 1 anterolisthesis of L5 on S1. The vertebral bodies maintain normal height. No fracture. Broad-based posterior disc bulge at L4-L5. Loss of intervertebral disc height with endplate degenerative changes at L5-S1. Partial fusion of the sacroiliac joints. Soft tissues: The paravertebral soft tissues are unremarkable. IMPRESSION: No acute fracture or traumatic malalignment in the lumbar spine. Dictated and Authenticated by: Mars Estevez MD. Ordering:GIBSON Gilbert MD
== END 2024-07-03 04:28 | disposition short-term general hospital (02) ==
LOC: ER 04:18
PROVIDERS: Emergency Provider Student in an Organized Health Care Education/Training Program; PCP Family Medicine
DX: S06.6X0A Traumatic subarachnoid hemorrhage without loss of consciousness, initial encounter (principal); S06.5X0A Traumatic subdural hemorrhage without loss of consciousness, initial encounter; S06.360A Traumatic hemorrhage of cerebrum, unspecified, without loss of consciousness, initial encounter; G40.909 Epilepsy, unspecified, not intractable, without status epilepticus; D70.9 Neutropenia, unspecified; W18.39XA Other fall on same level, initial encounter; Y93.89 Activity, other specified; Y92.89 Other specified places as the place of occurrence of the external cause; Z79.82 Long term (current) use of aspirin; Z79.84 Long term (current) use of oral hypoglycemic drugs; Z79.85 Long-term (current) use of injectable non-insulin antidiabetic drugs
CPT/HCPCS: 71275; 74177; 80053; 83690; 84145; 87040; 87637; 93005; 96365; 96367; 96368; 99285; 70450; 70460; 72125; 72128; 72131; 81003; 81015; 83605; 83735; 83880; 84484; 85025; 85610; 85730; 93010; J1953; J2020; J2543; J3490